=== PATIENT | female | born 1955 | race African-American/Black ===

== ENCOUNTER 2023-12-14 07:58 | Emergency (ER) | payer MEDICARE, MEDICAID ==
[~2023-12-14] VITALS: Ht 162.6 cm; Wt 59.0 kg
[~2023-12-14 07:58] MED LIST: AMLO10TA80 PO; ATOR-2 PO; CLON0.1T PO; INSU100I28 SQ; MIRT-89 PO; PANT40TA51 PO; SUCR1TAB PO
[2023-12-14 08:02] VITALS: O2SAT 100
[2023-12-14 08:56] LABS: HEMATOCRIT. 30.9 % (36.0-48.0); HEMOGLOBIN. 10.9 g/dL (12.0-16.0); MEAN CORPUSCULAR HEMOGLOBIN 19.6 pg (28.0-32.0); MEAN CORPUSCULAR HGB CONC 35.2 g/dL (31.0-37.0); MEAN CORPUSCULAR VOLUME 55.6 fL (81.0-99.0); RED BLOOD CELL COUNT 5.56 mill/uL (4.2-5.4); RED CELL DISTRIBUTION WIDTH 18.7 % (11.6-14.6); WHITE BLOOD COUNT 3.3 x1000/uL (4.5-11.0)
[2023-12-14 08:57] LABS: DIFFERENTIAL COMMENT 1
[2023-12-14 08:58] LABS: CHLORIDE 106 mEq/L (98-107); POTASSIUM 3.4 mEq/L (3.5-5.1); SODIUM 141 mEq/L (136-145)
[2023-12-14 08:59] LABS: CALCIUM 9.6 mg/dL (8.7-10.4); CARBON DIOXIDE 29 mEq/L (21-32)
[2023-12-14 09:04] LABS: AMMONIA 26 uMol/L (<32); CREATININE 1.1 mg/dL (0.6-1.0); GLUCOSE 121 mg/dL (70-105); UREA NITROGEN BLOOD 15 mg/dL (9-23)
[2023-12-14 09:05] LABS: TROPONIN I HIGH SENSITIVITY 4 ng/L (3.0-34)
[2023-12-14 09:06] LABS: ACETAMINOPHEN < 2 ug/mL (10-30)
[2023-12-14 09:09] LABS: ETHANOL BLOOD < 10 mg/dL (<10); THYROID STIMULATING HORMONE 0.68 uIU/mL (0.55-4.78)
[2023-12-14 12:00] VITALS: BP 126/56; PULSE 52; RESP 17; TEMP 36.55848; O2SAT 97
[2023-12-14 12:28] LABS: ALANINE AMINOTRANSFERASE 8 IU/L (10-49); ALBUMIN 4.1 g/dL (3.2-4.8); ASPARTATE AMINOTRANSFERASE 17 IU/L (<34); BILIRUBIN DIRECT 0.2 mg/dL (<=3.0); BILIRUBIN TOTAL 0.6 mg/dL (0.1-1.0); PROTEIN TOTAL 6.4 g/dL (6.0-8.3)
[2023-12-14 12:55] LABS: PLATELET 105 x1000/uL (130-400)
[2023-12-14 13:05] LABS: HYPOCHROMASIA 2+; TARGET CELLS 2+
[2023-12-14 13:06] LABS: ANISOCYTOSIS 2+; MICROCYTOSIS 3+
[2023-12-14 13:07] LABS: PLATELET ESTIMATE DECREASED
== END 2023-12-14 12:25 | disposition admitted as inpatient to this hospital (09) ==
LOC: ER 07:58 → EDBEDREQTM 11:04 → EDBEDREQSVC 11:04 → EDBEDREQ 11:04 → ER 12:25
DX: R41.82 Altered mental status, unspecified (principal); E11.9 Type 2 diabetes mellitus without complications; I10 Essential (primary) hypertension; Z79.4 Long term (current) use of insulin; Z88.6 Allergy status to analgesic agent; Z88.5 Allergy status to narcotic agent; Z86.73 Personal history of transient ischemic attack (TIA), and cerebral infarction without residual deficits; Z79.899 Other long term (current) drug therapy
CPT/HCPCS: 36415; 71045; 80048; 80076; 80307; 80320; 80329; 82140; 84443; 84484; 85025; 99284; G0480